=== PATIENT | male | born 1965 | race Caucasian/White ===

== ENCOUNTER 2024-02-01 12:26 | Emergency (ER) | payer BC, SELFPAY ==
[2024-02-01 12:28] VITALS: BP 149/78
--- NOTE | 2024-02-01 13:06 | ED.GENMED ---
History of Present Illness
General
Chief Complaint: Abdominal Pain
Source: patient
Exam Limitations: none
Time Seen by Provider: 02/01/24 12:53
Nursing documentation reviewed up to this point in time: agreed with
History of Present Illness
History of Present Illness:
58-year-old male with Aryan history of A-fib currently on Xarelto previous cerebral palsy, stroke presenting to the emergency department today with concerns of left lower quad abdominal pain starting last night. Denies similar symptoms in the
past. Denies changes in bowel movements or urination denies any nausea or vomiting.
Past History
Past History
ED Past Medical History: Hypercholesterolemia, Psychiatric (Bipolar disorder, depression) and Other (ASD repair, TIA)
ED Past Surgical History: Cardiac (Open-heart repair of atrial septal defect as a child)
Social History
Tobacco: Non-smoker
Alcohol: Occasional
Drug: Marijuana
Personal:
Living: with family
Family History
Family History: Unable to obtain
Review of Systems
Review of Systems
Allergies reviewed?: Yes
All Other Systems: ROS reviewed and negative except as documented in HPI and ROS
Phy Exam
Physical Exam
Physical Exam:
GENERAL: Alert , in no apparent distress
EYE: pupils equal and reactive
NECK: Supple, no significant adenopathy.
ENT: o/p clr, mmm.
CARDIAC: Regular rate and rhythm .
LUNGS: Clear breath sounds bilaterally, no acute respiratory distress, no wheezes/rales/rhonchi
ABDOMEN: Left lower quadrant Tez pain otherwise soft benign abdomen
NEUROLOGICAL: Alert and oriented, no focal neuro deficits
SKIN: Warm and dry, skin intact.
MUSCULOSKELETAL: No edema, well perfused.
PSYCH: Normal and appropriate interaction.
Course
Orders/Labs/Results
Orders:
Orders
02/01/24 13:01
Iohexol [Omnipaque] See Protocol PO NOW STA
02/01/24 13:04
CT Abd/Pel (IV only)-DH only Urgent
Comment:
Reason For Exam: llq pain
02/01/24 13:24
Complete Blood Count/With Diff Urgent
Comprehensive Metabolic Panel Urgent
02/01/24 14:25
Urinalysis Reflex To Culture Urgent
Date Specimen was Collected: 02/01/24
Time Specimen was Collected: 14:24
Urine Microscopic Reflex Cult Urgent
Urine Culture Urgent
BIGG Source: U
Specimen Description:
Date Specimen was Collected: 02/01/24
Time Specimen was Collected: 14:24
02/01/24 15:30
Amoxicillin 875 mg/Clav 125 mg [Augmentin 875 mg/125 mg] 1 tablet PO NOW STA
Abnormal Lab Results
02/01/24 02/01/24
13:24 14:25
RBC 4.03 L 10^6/uL
(4.70-6.10)
Hgb 12.6 L g/dL
(13.0-18.0)
Hct 36.1 L %
(39.0-52.0)
MCH 31.3 H pg
(27.0-31.0)
Absolute Neuts (auto) 7.8 H 10^3/uL
(1.4-6.5)
Absolute Monos (auto) 0.7 H 10^3/uL
(0.1-0.6)
Lymphocytes % 17.4 L %
(20.5-51.1)
Chloride 108 H mmol/L
(98-107)
Leukocyte Esterase Rfl 1+ A
(Negative)
Urine Bacteria (Reflex) Few A
(Negative)
02/01/24 13:24
02/01/24 13:24
Vital Signs
Initial and Last Documented VS:
Initial Vital Signs
Temp Pulse Resp BP Pulse Ox
98.3 F 77 18 149/78 97
02/01/24 12:28 02/01/24 12:28 02/01/24 12:28 02/01/24 12:28 02/01/24 12:28
Last Documented Vital Signs
Temp Pulse Resp BP Pulse Ox
98.3 F 77 18 149/78 97
02/01/24 12:28 02/01/24 12:28 02/01/24 12:28 02/01/24 12:28 02/01/24 12:28
MDM/Problems Addressed
MDM/Problems Addressed:
58-year-old male presenting to the emergency department today with concerns of left lower quad abdominal pain reproducible to palpation here. Vital signs normal plan for CT scan for further assessment. CT scan showing uncomplicated diverticulitis.
Patient started on Augmentin otherwise stable for discharge return precautions given.
*Critical Care Note
Total Time (30-74mins, 75-104mins- exclusive of procedures): Not Applicable
ED Attending Note
-
Portions of this chart may have been created with voice recognition software.� Occasional wrong word or��sound alike� substitutions may have occurred due to the inherent limitations of voice recognition software.
Discharge Plan
Departure
Patient Disposition: Home (Routine Discharge)
Date of Disposition: 02/01/24
Time of Disposition: 15:39
Patient with high blood pressure during this ER visit?: No
Condition: Good
Covid-19: Not Applicable
Discharge Problem:
Diverticulitis
Instructions: Diverticulitis (DC)
Prescriptions:
New
amoxicillin-pot clavulanate 875-125 mg tablet
1 tab PO BID 7 Days Qty: 14 0RF
No Action
atorvastatin 10 MG tablet
10 mg PO HS
cyanocobalamin (vitamin B-12) 1,000 MCG tablet
1,000 mcg PO HS
Glucosamine Sulf-Chondroitin 1 EACH capsule
2 cap PO DAILY@1700
lamotrigine [Lamictal] 200 MG tablet
400 mg PO HS
Xarelto 20 MG tablet
20 mg PO DAILY@1700
quetiapine [Seroquel] 100 mg Tablet
300 mg PO HS
zolpidem 5 mg tablet
5 mg PO HS
cholecalciferol (vitamin D3) 25 mcg (1,000 unit) Tablet
3,000 unit PO HS
Lumigan 0.01 % drops
1 drp BOTH EYES HS
lithium carbonate 300 mg tablet extended release
600 mg PO DAILY@1700
oxycodone 5 mg tablet
5 - 10 mg PO Q4HPRN PRN (Reason: moderate to severe pain) Qty: 14 0RF
amoxicillin-pot clavulanate [amoxicillin-pot clavulanate] 875-125 mg tablet
1 tab PO Q12 7 Days Qty: 14 0RF
polyethylene glycol 3350 17 gram Powder In Packet
17 g PO DAILY Qty: 0 0RF
lithium carbonate 300 mg Tablet Extended Release
600 mg PO DAILY@1700 Qty: 0 0RF
Referrals:
Tristin Franklin DO [Family Provider] -
Karson Masters MD [Active] - Follow up in 10 days
Activity Restrictions/Additional Instructions:
You came to the emergency department today with concerns of left lower quadrant abdominal pain you are found to have diverticulitis. Please take Augmentin twice daily for the next week and follow close with the primary care doctor and GI doctor.
Return to the emergency department for any worsening, new or concerning symptoms.
Interventions
Interventions:
*Risk Screen - Suicide Last Done: 02/01/24 12:28
*General Assessment Last Done: 02/01/24 12:28
*Neglect/Abuse Screening Last Done: 02/01/24 12:28
XM-Zmlkrm-Jndcnkmytq Assessment Last Done: 02/01/24 14:58
Discharge Date and Time
Print Language: OCCITAN
[2024-02-01 13:37] LABS: % Basophils 0.4 % (0-2); % Eosinophils 0.8 % (0-6); % Immature Granulocytes 0.3 % (0-0.5); % Lymphocytes 17.4 % (20.5-51.1); % Neutrophils 74.1 % (42.2-75.2); Absolute Eosinophils 0.1 10^3/uL (0-0.7); Absolute Lymphocytes 1.8 10^3/uL (1.2-3.4); Absolute Monocytes 0.7 10^3/uL (0.1-0.6); Absolute Neutrophils 7.8 10^3/uL (1.4-6.5); Hematocrit 36.1 % (39.0-52.0); Hemoglobin 12.6 g/dL (13.0-18.0); Mean Corp Hgb Conc. 34.9 g/dL (33.0-37.0); Mean Corpuscular Hgb 31.3 pg (27.0-31.0); Mean Corpuscular Volume 89.6 fL (80.0-94.0); Nucleated Red Blood Cells % 0 % (-); Platelet Count 201 10^3/uL (130-400); Red Blood Cell Count 4.03 10^6/uL (4.70-6.10); White Blood Cell Count 10.5 10^3/uL (4.8-10.8)
[2024-02-01 13:47] LABS: ALT (SGPT) 24 U/L (0-50); AST (SGOT) 22 U/L (17-59); Albumin 4.2 g/dl (3.5-5.0); Alkaline Phosphatase 68 U/L (38-126); Blood Urea Nitrogen 15 mg/dl (9-20); Calcium 9.9 mg/dl (8.4-10.2); Carbon Dioxide 25 mmol/L (22-30); Chloride 108 mmol/L (98-107); Glucose 96 mg/dl (70-99); Potassium 4.5 mmol/L (3.5-5.1); Sodium 139 mmol/L (135-145); Total Bilirubin 0.6 mg/dl (0.2-1.3); Total Protein 6.5 g/dl (6.3-8.2); eGFR > 60.00
[2024-02-01 14:33] LABS: Urine Albumin Negative (Neg - Trace); Urine Bilirubin Negative (Negative); Urine Character Clear (Clear); Urine Color Yellow; Urine Glucose Negative (Negative); Urine Ketone Negative (Negative); Urine Leukocyte 1+ (Negative); Urine Nitrite Negative (Negative); Urine Occult Blood Negative (Negative); Urine Urobilinogen Negative (Neg - 1+)
[2024-02-01 15:10] LABS: Urine Mucus Few; Urine Squamous Cell 0-2 /LPF (Few)
[2024-02-01 15:11] LABS: Urine Bacteria Few (Negative); Urine Red Blood Cell 0-2 /HPF (0-2)
[2024-02-01] MEDS: AUGMENTIN 875 MG/125 MG 1 TABLET PO (16:23)
[2024-02-01 16:34] VITALS: BP 151/82
== END 2024-02-01 16:37 | disposition home or self-care (01) ==
LOC: EMR 12:26
PROVIDERS: Physician Assistant; EMERGENCY PHYSICIAN Emergency Medicine; FAMILY PHYSICIAN Internal Medicine
DX: K57.92 Diverticulitis of intestine, part unspecified, without perforation or abscess without bleeding (principal); I48.91 Unspecified atrial fibrillation; Z79.01 Long term (current) use of anticoagulants; E78.00 Pure hypercholesterolemia, unspecified; F31.9 Bipolar disorder, unspecified
CPT/HCPCS: 99284; 74177; 80053; 81003; 81015; 85025; 87086; Q9967

== ENCOUNTER → 2024-04-09 06:25 | Day surgery (SDC) | payer BC, SELFPAY | LOC: GI 06:25 | PROVIDERS: ATTENDING PHYSICIAN Internal Medicine Gastroenterology | DX: D12.0 Benign neoplasm of cecum (principal); K57.30 Diverticulosis of large intestine without perforation or abscess without bleeding; K64.0 First degree hemorrhoids; Z79.01 Long term (current) use of anticoagulants; Z87.19 Personal history of other diseases of the digestive system | CPT/HCPCS: 45380; 88305 ==

== ENCOUNTER → 2024-08-25 14:57 | Outpatient (REF) | payer BC, SELFPAY | LOC: HWRCS 14:57 | PROVIDERS: ATTENDING PHYSICIAN Internal Medicine Cardiovascular Disease; FAMILY PHYSICIAN Internal Medicine | DX: I48.91 Unspecified atrial fibrillation (principal); I48.92 Unspecified atrial flutter; R94.31 Abnormal electrocardiogram [ECG] [EKG]; R00.1 Bradycardia, unspecified | CPT/HCPCS: 93306 ==

== ENCOUNTER → 2024-10-03 09:06 | Outpatient (REF) | payer BC, SELFPAY | LOC: HWRAD 09:06 | PROVIDERS: FAMILY PHYSICIAN Internal Medicine | DX: R91.8 Other nonspecific abnormal finding of lung field (principal) | CPT/HCPCS: 71250 ==

== ENCOUNTER → 2024-10-24 06:53 | Outpatient (REF) | payer BC, SELFPAY | LOC: HWRAD 06:53 | PROVIDERS: ATTENDING PHYSICIAN Internal Medicine | DX: R10.9 Unspecified abdominal pain (principal); E04.1 Nontoxic single thyroid nodule | CPT/HCPCS: 76536; 76770 ==